=== PATIENT | male | born 1985 | race African-American/Black ===

== ENCOUNTER 2022-06-19 21:57 | Emergency (ER) | payer BC, OTHER ==
[2022-06-19] MEDS ORDERED: Acetaminophen/HYDROcodone 325-5 MG Tab PO ONE (22:28)
[2022-06-19] MEDS ORDERED: Bupivacaine 0.5% 10 ML SDV INJECT ONE (22:30)
[2022-06-19] MEDS ORDERED: Lidocaine 1% with EPINEPHrine 1:100,000 10 ML MDV INJECT ONE (22:30)
[2022-06-19] MEDS ORDERED: Lidocaine 1% with EPINEPHrine 1:100,000 20 ML MDV ONE (23:15)
[2022-06-20] MEDS ORDERED: Lidocaine 1% with EPINEPHrine 1:100,000 20 ML MDV INJECT ONE (00:59)
[2022-06-20] MEDS ORDERED: Diphtheria,Pertussis(Acell),Tetanus Vaccine 0.5 ML Syringe IM ONE (03:06)
[2022-06-20] MEDS ORDERED: Orphenadrine 100 MG Tab.ER PO STA (03:06)
== END 2022-06-20 03:43 | disposition home or self-care (01) ==
LOC: JD.ED 21:57
DX: S01.112A Laceration without foreign body of left eyelid and periocular area, initial encounter (principal); Z72.0 Tobacco use; Z23 Encounter for immunization; W22.09XA Striking against other stationary object, initial encounter
CPT/HCPCS: 12014; 70450; 70486; 90471; 90715; 99283; A9270; J3490